=== PATIENT | female | born 1995 | race Two or more races ===

== ENCOUNTER 2020-05-18 20:07 | Emergency (ER) | payer SELFPAY ==
[~2020-05-18] VITALS: Ht 160 cm; Wt 72.0 kg
[2020-05-18 20:43] VITALS: BP 130/76
== END 2020-05-18 21:26 | disposition home or self-care (01) ==
LOC: ER 20:07
DX: J34.89 Other specified disorders of nose and nasal sinuses (principal); R09.81 Nasal congestion
CPT/HCPCS: 87635; 99283; C9803

== ENCOUNTER 2020-06-10 17:00 | Emergency (ER) | payer BC, SELFPAY ==
[~2020-06-10] VITALS: Ht 170.2 cm; Wt 65.0 kg
[2020-06-10] MEDS ORDERED: AMOXICILLIN/POTASSIUM CLAVULANATE 875/125MG TAB PO ONE (17:45)
[2020-06-10] MEDS ORDERED: IBUPROFEN 600MG TABLET PO ONE (17:45)
[2020-06-10 17:49] VITALS: BP 115/70
== END 2020-06-10 18:07 | disposition home or self-care (01) ==
LOC: ER 17:23
DX: H65.01 Acute serous otitis media, right ear (principal); Z86.19 Personal history of other infectious and parasitic diseases
CPT/HCPCS: 99283